=== PATIENT | female | born 1955 ===

== ENCOUNTER 2022-01-06 14:12 | Inpatient (IN) | payer OTHER ==
[2022-01-07] MEDS ORDERED: GLIMEPIRIDE1 MG (12:49)
[2022-01-07] MEDS ORDERED: ATACAND16 MG PO (12:49)
[2022-01-07] MEDS ORDERED: HYDRALAZINE HC100 MG PO (12:49)
[2022-01-07] MEDS ORDERED: TIROSINT75 MCG PO (12:49)
[2022-01-07] MEDS ORDERED: HORIZANT300 MG PO (12:50)
[2022-01-07] MEDS ORDERED: LABETALOL HCL100 MG PO (12:50)
[2022-01-07] MEDS ORDERED: SIMVASTATIN (12:50)
[2022-01-27] MEDS ORDERED: FERROUS SULFAT325 MG (14:42)
[2022-01-27] MEDS ORDERED: GABAPENTIN300 M2 (14:42)
[2022-01-27] MEDS ORDERED: SIMVASTATIN20 MG (14:42)
[2022-01-27] MEDS ORDERED: VITAMIN D3125 MC1 (14:43)
[2022-02-02] MEDS ORDERED: INTESTINEX680 M1 PO (08:14)
[2022-02-02] MEDS ORDERED: NEURONTIN300 MG PO (08:15)
== END 2022-02-02 12:53 | disposition home or self-care (01) | DRG 331 ==
LOC: SURG 01-13 12:00 → O/R 01-27 10:45 → SURH 01-27 22:28
PROVIDERS: ADMIT Surgery; ATTEND Surgery
PROC: 4A12X4Z Monitoring of Cardiac Electrical Activity, External Approach (ICD-10-PCS; 2022-01-28)
PROC: 0D1M4Z4 Bypass Descending Colon to Cutaneous, Percutaneous Endoscopic Approach (ICD-10-PCS; principal; 2022-01-30)
PROC: 0DBP4ZZ Excision of Rectum, Percutaneous Endoscopic Approach (ICD-10-PCS; 2022-01-30)
PROC: 0DTN4ZZ Resection of Sigmoid Colon, Percutaneous Endoscopic Approach (ICD-10-PCS; 2022-01-30)
PROC: B54CZZZ Ultrasonography of Left Lower Extremity Veins (ICD-10-PCS; 2022-01-30)
DX: C18.7 Malignant neoplasm of sigmoid colon (principal); K57.30 Diverticulosis of large intestine without perforation or abscess without bleeding; K59.09 Other constipation; Z20.822 Contact with and (suspected) exposure to COVID-19; R59.0 Localized enlarged lymph nodes; E11.40 Type 2 diabetes mellitus with diabetic neuropathy, unspecified; E66.01 Morbid (severe) obesity due to excess calories; I11.9 Hypertensive heart disease without heart failure; I12.9 Hypertensive chronic kidney disease with stage 1 through stage 4 chronic kidney disease, or unspecified chronic kidney disease; E11.22 Type 2 diabetes mellitus with diabetic chronic kidney disease; N18.30 Chronic kidney disease, stage 3 unspecified; Z79.4 Long term (current) use of insulin; M48.061 Spinal stenosis, lumbar region without neurogenic claudication; E03.9 Hypothyroidism, unspecified; Z93.3 Colostomy status

== ENCOUNTER → 2022-01-25 08:11 | Outpatient (CLI) | payer OTHER ==
[~2022-01-25 08:11] MED LIST: ATACAND16 MG PO; GLIMEPIRIDE1 MG; HORIZANT300 MG PO; HYDRALAZINE HC100 MG PO; LABETALOL HCL100 MG PO; SIMVASTATIN; TIROSINT75 MCG PO
== END | disposition home or self-care (01) ==
LOC: LAB 08:11
PROVIDERS: ATTEND Internal Medicine Geriatric Medicine
DX: Z20.818 Contact with and (suspected) exposure to other bacterial communicable diseases (principal); Z20.828 Contact with and (suspected) exposure to other viral communicable diseases